=== PATIENT | female | born 1980 | race Caucasian/White ===

== ENCOUNTER 2022-04-28 22:59 | Emergency (ER) | payer OTHER, MEDICAID ==
[~2022-04-28] VITALS: Ht 165.1 cm; Wt 80.0 kg
[2022-04-29] MEDS ORDERED: SODIUM CHLORIDE 0.9% 1,000 ML IV ONE (03:45)
[2022-04-29] MEDS ORDERED: ACETAMINOPHEN 325MG TABLET PO ONE (03:45)
[2022-04-29 03:59] LABS: BASOPHILS % 0.4 % (0.0-2.0); EOSINOPHILS % 0.7 % (0.0-5.0); HEMATOCRIT. 37.3 % (36.0-48.0); HEMOGLOBIN. 12.7 g/dL (12.0-16.0); LYMPHOCYTES % 14.3 % (20.0-50.0); MEAN CORPUSCULAR VOLUME 85.5 fL (81.0-99.0); MEAN PLATELET VOLUME 9.1 fl (7.4-10.4); MONOCYTES % 3.7 % (2.0-8.0); NEUTROPHILS % 80.9 % (40.0-76.0); PLATELET 173 x1000/uL (130-400); RED BLOOD CELL COUNT 4.37 mill/uL (4.2-5.4); RED CELL DISTRIBUTION WIDTH 14.8 % (11.6-14.6)
[2022-04-29 04:22] LABS: CHLORIDE 104 mEq/L (98-107)
[2022-04-29] MEDS ORDERED: LOPE2CAP MT (05:48)
[2022-04-29 06:26] VITALS: BP 103/58
== END 2022-04-29 06:40 | disposition home or self-care (01) ==
LOC: ER 22:59
DX: R19.7 Diarrhea, unspecified (principal); R53.1 Weakness; Z20.822 Contact with and (suspected) exposure to COVID-19; R42 Dizziness and giddiness; R00.8 Other abnormalities of heart beat; R94.31 Abnormal electrocardiogram [ECG] [EKG]; Z86.16 Personal history of COVID-19
CPT/HCPCS: 36415; 80053; 83690; 85025; 87426; 93005; 96360; 99284; C9803; J7030

== ENCOUNTER 2023-02-28 00:42 | Emergency (ER) | payer OTHER, MEDICAID ==
[~2023-02-28] VITALS: Ht 167.6 cm; Wt 83.0 kg
[~2023-02-28 00:42] MED LIST: LOPE2CAP MT
[2023-02-28 01:02] VITALS: BP 112/76
[2023-02-28 02:56] LABS: CLARITY URINE CLOUDY (CLEAR); COLOR URINE YELLOW (YELLOW); KETONES URINE NEGATIVE (NEGATIVE); LEUKOCYTE ESTERASE URINE NEGATIVE (NEGATIVE); NITRITE URINE NEGATIVE (NEGATIVE); OCCULT BLOOD URINE 3+ (NEGATIVE); PH URINE 6.5 (4.5-8.0); PROTEIN URINE TRACE (NEGATIVE); SPECIFIC GRAVITY URINE 1.023 (1.005-1.030)
== END 2023-02-28 06:30 | disposition left against medical advice (07) ==
LOC: ER 00:42
DX: Z53.21 Procedure and treatment not carried out due to patient leaving prior to being seen by health care provider (principal)
CPT/HCPCS: 81003; 81025; 93005; 99281